=== PATIENT | female | born 1975 | race Native Hawaiian/Other Pacific Islander ===

== ENCOUNTER 2017-05-03 10:35 | Emergency (ER) | payer OTHER ==
[2017-05-03 10:39] VITALS: BP 166/95; PULSE 58; RESP 20; TEMP 97.7; O2SAT 98
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
[2017-05-03] MEDS ORDERED: Lidocaine 5% Patch TD STA (11:16)
[2017-05-03] MEDS ORDERED: Lidocaine 5% Patch TD ONE (11:26)
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
== END 2017-05-03 12:01 | disposition home or self-care (01) ==
LOC: C.ER 10:35
DX: S83.91XA Sprain of unspecified site of right knee, initial encounter (principal); S46.911A Strain of unspecified muscle, fascia and tendon at shoulder and upper arm level, right arm, initial encounter; V49.9XXA Car occupant (driver) (passenger) injured in unspecified traffic accident, initial encounter